=== PATIENT | female | born 2005 | race Caucasian/White ===

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

== ENCOUNTER 2023-12-10 10:35 | Outpatient (REF) | payer BC, MEDICAID, SELFPAY | END 2023-12-10 10:36 | disposition home or self-care (01) | LOC: LBN 10:35 | PROVIDERS: PCP Nurse Practitioner Family; Visit Provider Physician Assistant Medical | DX: J02.9 Acute pharyngitis, unspecified (principal) | CPT/HCPCS: 87077; 87070 ==

== ENCOUNTER 2025-01-13 10:25 | Emergency (ER) | payer BC, MEDICAID, SELFPAY ==
[2025-01-13 10:28] VITALS: BP 111/75; PULSE 88; RESP 16; TEMP 36.9; O2SAT 97
[2025-01-13 10:33] VITALS: BP 111/75; PULSE 88; RESP 16; TEMP 36.9; O2SAT 97
--- NOTE | 2025-01-13 11:19 | ED.GENADUL_ITS ---
Discharge Plan Disposition Patient Disposition: Home Discharge Details Clinical Impression: Bronchitis Primary Care Provider: June Rojas ED Provider: Jonel Vega Home Meds and New Rx's Prescriptions: New cetirizine 10 mg tablet 10 mg PO DAILY PRNQty: 7 0RF benzonatate 100 mg capsule 100 mg PO BID PRNQty: 7 0RF promethazine-DM 6.25-15 mg/5 mL syrup 5 ml PO Q6H PRNQty: 118 0RF fluticasone propionate [Flonase Allergy Relief] 50 mcg/actuation spray,suspension 1 spray intranasal DAILY Qty: 16 0RF Rx Instructions: administer into each nostril naproxen 500 mg tablet 500 mg PO BID PRNQty: 7 0RF Continued medroxyprogesterone 150 mg/mL syringe IM Patient Comments: ADM 1 ML IM Q 13 WKS ibuprofen [IBU-200] 200 mg Tablet 400 mg PO Q6H PRN albuterol sulfate [ProAir HFA] 90 mcg/actuation HFA aerosol inhaler 2 puff INHALATION Q6H PRN PRN Patient Comments: INHALE 1 TO 2 PUFFS BY MOUTH 20 MINUTES BEFORE EXCERCISE Discharge Instructions Instructions: Acute bronchitis Additional Instructions: You are seen in the emergency department for your cough and cold symptoms. You likely have a viral upper respiratory tract infection for which you are receiving supportive medications which you should take as directed. As we discussed if you develop worsening shortness of breath, do not urinate at least once every 8 hours while awake develop fevers or have any other concerns please return to the emergency department. As we discussed this because we did not obtain a chest x-ray today does not mean we could not obtain 1 in the future so if you develop fevers or worsening cough please return to the emergency department. You will receive a call back if your viral swab returns positive. HPI General Date/Time Provider Initiated Documentation: 01/13/25 11:01 . HPI Narrative: MDM This is a very well-appearing normothermic and not tachycardic 19-year-old female with URI symptoms and a cough for which patient will receive viral swab and empiric trial of discharge with expectant outpatient management. No fevers to suggest pneumonia. No pain out of proportion to suggest necrotizing soft tissue infection. Patient has not been vomiting so my suspicion is low for subdural empyema. Good range of motion in neck so doubt retropharyngeal abscess. Uvula midline so my suspicion is low for peritonsillar abscess. No significant posterior oropharynx erythema to suggest strep pharyngitis I did not swab for strep. No significant wheezes to suggest exacerbation of reactive airway disease. Patient I discussed whether or not to obtain a chest x-ray. Given her age and her well appearance I was not suspicious for ACS as her chest pain occurred with coughing so I did not order an ECG. I discussed that in the absence of fever and given that the patient appears quite well and has had only 4 days of symptoms I felt that there was a risk that the chest x-ray could be falsely positive for pneumonia. We discussed that in these cases patients received unnecessary antibiotics along with exposure to unnecessary side effects of antibiotics such as allergic reactions nausea vomiting and diarrhea. I did advise patient that if she had worsened symptoms over the next several days, any fevers, or could not eat or drink as result of nausea vomiting or if she did not urinate at least once every 8 hours while she was awake that she should return to the emergency department. We discussed that just because we did not obtain a chest x-ray at this point in time does not mean that we could not obtain 1 at any point moving forward. She understood her return indications. I called in supportive medications to her pharmacy to take as needed. 12:23 PM PCR negative for COVID influenza and RSV. HPI This is a previously healthy 19-year-old female up-to-date with immunizations not on any routine medications right emergency department via private vehicle in the setting of a cough for the past 4 days. Patient reports that she recently returned home from college. She has been attempting treatment with [id number] medications. She has no sick contacts. She has not been nauseous nor vomiting. She did have a sore throat several days ago. She has had a cough and occasionally produce some mucus. She has occasional had some chest pain when coughing. She had a headache at the beginning of her symptoms but this is subsequently resolved. She is a college student and she came home recently. She has graduation in several weeks. Exam General: Well-appearing in no acute distress speaking in complete sentences. Head: Normocephalic, atraumatic. Eye: extraocular eye movements intact. No conjunctival injection. No scleral icterus. Uvula midline. No significant posterior oropharynx erythema. Ear, nose, mouth, throat: Grossly normal inspection. Normal voice, handling secretions normally. Neck: Trachea midline. Cardiovascular: Well-perfused distal extremities. Regular rate and rhythm. Respiratory: Nonlabored respiration. Transmitted upper airway noises right greater than left. No stridor. No respiratory distress. Gastrointestinal: Nondistended abdomen. Musculoskeletal: No edema. Moving all 4 extremities spontaneously. Skin: Normal for age and race, grossly normal temperature and turgor. No acute rash. Neurologic: Alert and appropriate, no apparent acute deficits. Psychiatric: Mood and manner are appropriate. Grooming and personal hygiene are appropriate. Related Data Home Medications ?Medication ?Instructions ?Recorded ?Confirmed albuterol sulfate 90 mcg/actuation 2 puff inhalation Q6H PRN PRN 03/03/20 01/13/25 aerosol inhaler (ProAir HFA) ibuprofen 200 mg tablet (IBU-200) 400 mg PO Q6H PRN 03/03/20 01/13/25 medroxyprogesterone 150 mg/mL mg IM 03/03/20 intramuscular syringe benzonatate 100 mg capsule 100 mg PO BID PRN #7 caps 01/13/25 cetirizine 10 mg tablet 10 mg PO DAILY PRN #7 tabs 01/13/25 fluticasone propionate 50 1 spray intranasal DAILY #16 grams 01/13/25 mcg/actuation nasal spray,suspension (Flonase Allergy Relief) naproxen 500 mg tablet 500 mg PO BID PRN #7 tabs 01/13/25 promethazine-DM 6.25 mg-15 mg/5 mL 5 ml PO Q6H PRN #118 mL 01/13/25 oral syrup Previous Rx's ?Medication ?Instructions ?Recorded benzonatate 100 mg capsule 100 mg PO BID PRN #7 caps 01/13/25 cetirizine 10 mg tablet 10 mg PO DAILY PRN #7 tabs 01/13/25 fluticasone propionate 50 1 spray intranasal DAILY #16 grams 01/13/25 mcg/actuation nasal spray,suspension (Flonase Allergy Relief) naproxen 500 mg tablet 500 mg PO BID PRN #7 tabs 01/13/25 promethazine-DM 6.25 mg-15 mg/5 mL 5 ml PO Q6H PRN #118 mL 01/13/25 oral syrup Allergies Allergy/AdvReac Type Severity Reaction Status Date / Time No Known Allergies Allergy Unverified 01/13/25 10:34 General Stated Complaint: RespSymp EZEKIEL: 3 Course Vital Signs Vital signs: Vital Signs Temperature 36.9 C 01/13/25 10:28 Pulse 88 01/13/25 10:28 Respiratory Rate 16 01/13/25 10:28 Blood Pressure 111/75 01/13/25 10:28 Pulse Oximetry 97 01/13/25 10:28 Temperature 36.9 C 01/13/25 10:33 Temperature Source Oral 01/13/25 10:28 Pulse 88 01/13/25 10:33 Respiratory Rate 16 01/13/25 10:33 Blood Pressure 111/75 01/13/25 10:33 Blood Pressure Position Sitting 01/13/25 10:33 Pulse Oximetry 97 01/13/25 10:33 Oxygen Delivery Method Room Air 01/13/25 10:33 Oxygen Flow Rate 0 01/13/25 10:28 Pain Level 4 01/13/25 10:28 Medical Decision Making Quality:SDOH Health Related Social Needs: No Data to Display PFSH All Active Problems (Updated 01/13/25 @ 11:20 by Jonel Vega MD) Bronchitis (Acute) Dyspnea on exertion (Acute) Medical History (Updated 01/13/25 @ 11:20 by Jonel Vega MD) Bacterial meningitis Social History Smoking/Tobacco Use Status: Never Smoking risk assessment performed?: Yes Alcohol Intake: never Drug use: Never Substance use type: does not use Do you feel safe at home: Yes Do you feel safe in your relationship?: Yes
[2025-01-13 12:07] LABS: COVID-19 PCR Negative (Negative); Influenza A PCR Negative (Negative); Influenza B PCR Negative (Negative); RSV PCR Negative (Negative)
[2025-01-13 12:09] LABS: Source Nasopharynx
== END 2025-01-13 11:23 | disposition home or self-care (01) ==
LOC: ER 11:22
PROVIDERS: Emergency Provider Emergency Medicine; PCP Nurse Practitioner Family
DX: J40 Bronchitis, not specified as acute or chronic (principal)
CPT/HCPCS: 99283 ×2; 87637

== ENCOUNTER 2025-01-17 14:26 | Outpatient (REF) | payer BC, MEDICAID, SELFPAY | END 2025-01-17 14:27 | disposition home or self-care (01) | LOC: NCHCN 14:26 | PROVIDERS: PCP Nurse Practitioner Family; Visit Provider Nurse Practitioner Family | DX: R31.9 Hematuria, unspecified (principal); R82.89 Other abnormal findings on cytological and histological examination of urine | CPT/HCPCS: 87086 ==

== ENCOUNTER 2025-04-09 16:50 | Outpatient (CLI) | payer BC, MEDICAID, SELFPAY ==
[2025-04-09 17:24] LABS: HCT 41.3 % (36.0-46.0); HGB 14.1 g/dL (11.2-15.7); MCH 31.1 pg (27.0-33.0); MCHC 34.1 % (32.0-36.0); MCV 91 fL (80-95); MPV 11.5 fL (8.0-11.0); Platelet Count 216 10^3/uL (130-400); RBC 4.53 10^6/uL (3.93-5.22); RDW 13.4 % (11.7-14.6); RDW-SD 44.6 fL; WBC 6.48 10^3/uL (4.4-10.8)
[2025-04-09 18:56] LABS: HCG Qual (Serum) Negative
[2025-04-09 19:00] LABS: Iron 65 ug/dL (50-170); Total Iron Binding Capacity 371 ug/dL (250-450); Transferrin Sat 18 % (15-50)
[2025-04-09 19:16] LABS: Ferritin 14 ng/mL (8-252)
[2025-04-11 11:13] LABS: Factor 8 Assay 23 % (50-150)
[2025-04-12 12:24] LABS: Coag FactorVIII Activity Assay 24 % (55 - 200)
== END 2025-04-09 16:51 | disposition home or self-care (01) ==
PROVIDERS: PCP Nurse Practitioner Family; Visit Provider Nurse Practitioner Family
DX: N93.9 Abnormal uterine and vaginal bleeding, unspecified (principal)
CPT/HCPCS: 36415; 85027; 85240; 85246; 85390; 85397; 82728; 83540; 83550; 84703